=== PATIENT | female | born 1995 | race Two or more races ===

== ENCOUNTER 2020-05-14 01:58 | Emergency (ER) | payer OTHER ==
[~2020-05-14] VITALS: Ht 152.4 cm; Wt 72.6 kg
[2020-05-14] MEDS ORDERED: ZOFRAN4 MG PO (06:05)
[2020-05-14] MEDS ORDERED: PEPCID40 MG PO (06:05)
[2020-05-14] MEDS ORDERED: ZEBUTAL 50-3251 EACH PO (06:11)
== END 2020-05-14 06:21 ==
LOC: ER 01:58
DX: K29.70 Gastritis, unspecified, without bleeding (principal)

== ENCOUNTER 2024-03-30 13:09 | Emergency (ER) | payer OTHER ==
[~2024-03-30] VITALS: Ht 152.4 cm; Wt 81.2 kg
[~2024-03-30 13:09] MED LIST: PEPCID40 MG PO; ZEBUTAL 50-3251 EACH PO; ZOFRAN4 MG PO
[2024-03-30] MEDS ORDERED: FAMOTIDINE/PF 20 MG in 0.9 % SODIUM CHLORIDE 8 ML IV PUSH STA (14:25)
[2024-03-30] MEDS ORDERED: METOCLOPRAMIDE HCL 10 MG in DEXTROSE 5 % IN WATER 50 ML IV ONE (14:30)
[2024-03-30] MEDS ORDERED: 0.9 % SODIUM CHLORIDE 1,000 ML IV SCH (14:30)
[2024-03-30 15:27] LABS: HEMATOCRIT 40.1 % (36.0-45.00); HEMOGLOBIN 13.8 g/dL (12.0-15.00); MEAN CELL VOLUME 86.6 fL (80.00-100.00); MEAN CORPUSCULAR HEMOGLOBIN 29.9 pg (27.00-32.0); MEAN CORPUSCULAR HGB CONC 34.5 g/dl (32.0-36.0); PLATELET COUNT 317 K/uL (150-450); RED BLOOD COUNT 4.63 M/uL (4.00-6.00); RED CELL DISTRIBUTION WIDTH 13.4 % (11.5-14.5)
[2024-03-30 16:11] LABS: ALBUMIN 4.4 gm/dL (3.4-5.0); BILIRUBIN TOTAL 0.61 mg/dL (0.3-1.2); CALCIUM 9.5 mg/dL (8.5-10.1); CREATININE SERUM 0.57 mg/dL (0.55-1.02); GFR 128.21; GLOBULINA 4.4 G/DL (2.4-3.5); POTASSIUM 3.8 mEq/L (3.5-5.1); TOTAL PROTEIN 8.8 gm/dL (6.4-8.2)
== END 2024-03-30 18:53 | disposition home or self-care (01) ==
LOC: ER 13:10
PROVIDERS: General Practice
DX: K29.60 Other gastritis without bleeding (principal); I10 Essential (primary) hypertension

== ENCOUNTER → 2025-05-25 | Emergency (ER) | payer OTHER ==
[~2025-05-25] VITALS: Ht 152.4 cm; Wt 65.8 kg
[~2025-05-25] MED LIST changes: +DEXAMETHASONE SODIUM PHOSP/PF 10 MG/ML VIAL IV ONE; +DEXAMETHASONE SODIUM PHOSPHATE 4 MG/ML VIAL ONE; +DIPHENHYDRAMINE HCL 50 MG/ML VIAL 1ML IV ONE; +DIPHENHYDRAMINE HCL 50 MG/ML VIAL 1ML ONE; +FAMOTIDINE/PF 20 MG/2 ML VIAL ONE; +FAMOtidine 10 MG/ML (4ML VIAL) IV ONE; +MEDROLPACK PO; +PEPCID AC20 MG PO; +ZYRTEC10 M3 PO
== END | disposition home or self-care (01) ==
LOC: ER 12:02
DX: T78.40XA Allergy, unspecified, initial encounter (principal); X58.XXXA Exposure to other specified factors, initial encounter